=== PATIENT | female | born 1995 | race Caucasian/White ===

== ENCOUNTER 2016-11-21 13:17 | Emergency (ER) | payer OTHER ==
--- NOTE | 2016-11-21 15:02 | UC ---
Back Pain HPI - HPI Summary HPI Summary: WOKE UP THIS MORNING WITH LOW BACK PAIN. HAS BEEN DOING A LOT OF LIFTING AND EXERTING HERSELF SHE IS HELPING THE [employer] MOVE IN. DENIES ANY NUMBNESS/TINGLING OR WEAKNESS. NO SADDLE ANESTHESIA. ASKING FOR A WORK NOTE. HAD SIMILAR PAIN IN MARCH AFTER A FALL BUT THIS SEEMS UNRELATED. - History of Current Complaint Chief Complaint: UCBackPain Stated Complaint: BACK PAIN Time Seen by Provider: 11/21/16 14:52 Hx Obtained From: Patient Hx Last Menstrual Period: 10/18/16 Onset/Duration: Sudden Onset, Lasting Hours, Still Present Timing: Constant Severity Initially: Moderate Severity Currently: Moderate Pain Intensity: 5 Pain Scale Used: 0-10 Numeric Back Pain: Is Discrete @ - LOW BACK Character: Sharp, Aching Aggravating: Movement, Bending Alleviating: Rest Associated Signs And Symptoms: Negative: Swelling, Redness, Bruising, Fever, Weakness, Numbness, Tingling, Abdominal Pain, Flank Pain, Bladder Incontinence, Bowel Incontinence, Pain with Weight Bearing - Allergies/Home Medications Allergies/Adverse Reactions: Allergies Allergy/AdvReac Type Severity Reaction Status Date / Time No Known Allergies Allergy Verified 11/21/16 13:29 PMH/Surg Hx/FS Hx/Imm Hx Respiratory History: Asthma - Surgical History Surgical History: Yes Surgery Procedure, Year, and Place: moles on back removed - Family History Known Family History: Positive: Diabetes Family History: CANCER - Social History Alcohol Use: None Substance Use Type: None Smoking Status (MU): Never Smoked Tobacco Review of Systems Constitutional: Negative Skin: Negative Respiratory: Negative Cardiovascular: Negative Gastrointestinal: Negative Musculoskeletal: Myalgia All Other Systems Reviewed And Are Negative: Yes Physical Exam Triage Information Reviewed: Yes Appearance: Well-Appearing, No Pain Distress, Well-Nourished Vital Signs: Initial Vital Signs Temp 97.9 F 11/21/16 13:25 Pulse 81 11/21/16 13:25 Resp 18 11/21/16 13:25 BP 118/74 11/21/16 13:25 Pulse Ox 100 11/21/16 13:25 Vital Signs Reviewed: Yes Eyes: Positive: Conjunctiva Clear ENT: Positive: Hearing grossly normal Neck: Positive: Supple Respiratory: Positive: No respiratory distress, No accessory muscle use Cardiovascular: Positive: Pulses Normal Abdomen Description: Positive: Soft Musculoskeletal: Positive: ROM Intact, No Edema, Other: - MILDLY TENDER PARASPINOUS MUSCLES LOW BACK Neurological: Positive: Alert Psychological: Positive: Age Appropriate Behavior Skin: Negative: rashes Back Pain Course/Dx - Differential Dx/Diagnosis Provider Diagnoses: ACUTE LOW BACK STRAIN Discharge - Discharge Plan Condition: Stable Disposition: HOME Prescriptions: Cyclobenzaprine TAB* [Flexeril TAB*] 10 mg PO BID PRN #30 tab PRN Reason: Pain Naproxen [Naproxen EC] 500 mg PO BID PRN #30 tab PRN Reason: Pain Patient Education Materials: Low Back Strain (ED) Forms: *Work Release Referrals: Jamee Streeter DO [Primary Care Provider] - If Needed Additional Instructions: BE SURE TO GO THROUGH SLOW RANGE OF MOTION AND STRETCHING EXERCISES DAILY YOU ARE ABLE TO PREVENT STIFFENING UP AND MAKING THE DISCOMFORT WORSE.
[2016-11-21 15:24] VITALS: BP 130/79
== END 2016-11-21 15:23 | disposition home or self-care (01) ==
LOC: UCEAST 13:17
DX: S39.012A Strain of muscle, fascia and tendon of lower back, initial encounter (principal); J45.909 Unspecified asthma, uncomplicated; X50.0XXA Overexertion from strenuous movement or load, initial encounter
CPT/HCPCS: 99212; G0463

== ENCOUNTER 2017-02-17 19:40 | Emergency (ER) | payer OTHER ==
[2017-02-17 20:02] VITALS: BP 117/85
--- NOTE | 2017-02-17 20:25 | UC ---
Back Pain HPI - HPI Summary HPI Summary: Pt presents with lower back pain. She tells me that yesterday she was lifting a heavy box into the back of a truck - did not have an injury or immediate pain. She woke up this morning with lower back pain and stiffness. No numbness or tingling into her legs. No bowel or bladder incontinence. She says that about a year or two ago she had a "lower back injury" while at work, which got better over time. She is currently taking ibuprofen for pain with good relief. She denies dysuria, hematuria, N/V/D/C, headache, fever, or chills. - History of Current Complaint Chief Complaint: UCBackPain Stated Complaint: BACK PAIN Time Seen by Provider: 02/17/17 20:08 Hx Obtained From: Patient Hx Last Menstrual Period: 02/17/2017 Onset/Duration: Sudden Onset Timing: Constant Severity Initially: Moderate Severity Currently: Moderate Pain Intensity: 8 Pain Scale Used: 0-10 Numeric Character: Dull, Throbbing, Stiffness Aggravating Factor(s): Movement, Lifting, Bending, Walking Alleviating Factor(s): Rest, Heat, Cold - Allergies/Home Medications Allergies/Adverse Reactions: Allergies Allergy/AdvReac Type Severity Reaction Status Date / Time No Known Allergies Allergy Verified 02/17/17 19:56 Home Medications: Home Medications Excedrin Extra Strength 250-250-65 mg 250 mg PO BID PRN 02/17/17 [History Confirmed 02/17/17] PMH/Surg Hx/FS Hx/Imm Hx Previously Healthy: Yes - Surgical History Surgical History: Yes Surgery Procedure, Year, and Place: moles on back removed - Family History Known Family History: Positive: None, Unknown, Diabetes Family History: CANCER - Social History Occupation: Employed Full-time Lives: Alone Alcohol Use: None Substance Use Type: None Smoking Status (MU): Current Some Day Smoker Type: Cigars - Immunization History Most Recent Influenza Vaccination: Not UTD Review of Systems Constitutional: Negative Skin: Negative Respiratory: Negative Cardiovascular: Negative Gastrointestinal: Negative Genitourinary: Negative Neurovascular: Negative Musculoskeletal: Decreased ROM - Back, Other: - Lower back pain Neurological: Negative Psychological: Negative All Other Systems Reviewed And Are Negative: Yes Physical Exam Triage Information Reviewed: Yes Appearance: Well-Appearing, Well-Nourished Vital Signs: Initial Vital Signs Temp 99.7 F 11/19/17 19:56 Pulse 97 02/17/17 19:56 Resp 16 02/17/17 19:56 BP 117/85 02/17/17 19:56 Pulse Ox 99 02/17/17 19:56 Vital Signs Reviewed: Yes Neck: Positive: Supple, Nontender, No Lymphadenopathy, Other: - FROM Respiratory: Positive: Chest non-tender, Lungs clear, Normal breath sounds, No respiratory distress, No accessory muscle use Cardiovascular: Positive: RRR, No Murmur, Pulses Normal Abdomen Description: Positive: Nontender, No Organomegaly, Soft. Negative: CVA Tenderness (R), CVA Tenderness (L), Distended, Guarding Bowel Sounds: Positive: Present Musculoskeletal: Positive: Strength Intact - B/L LE including dorsiflexion and plantar flexion., No Edema, ROM Limited @ - Flexion and extension of spine., Other: - Negative SLR. Negative KAY. Normal gait. Neurological: Positive: Alert, Muscle Tone Normal, Other: - CN II-XII grossly intact. Sensations L2-S1 intact. Reflexes: knee and ankle +2. Psychological: Positive: Age Appropriate Behavior Skin: Negative: rashes, significant lesion(s) Back Pain Course/Dx - Course Course Of Treatment: Pt was offered inj of toradol, but declined due to fear of needles. Says she has taken flexeril before, but it made her too "groggy". She wishes to stick with ibuprofen for pain. Needs a note for work today. Advised to use ice alternating with heat and OTC ibuprofen for pain. - Differential Dx/Diagnosis Differential Diagnosis/HQI/PQRI: Fracture, Herniated Disc, Renal Colic, Strain, Sprain Provider Diagnoses: Lower back strain Discharge - Discharge Plan Condition: Stable Disposition: HOME Patient Education Materials: Low Back Strain (ED), Lower Back Exercises (ED) Forms: *Work Release Referrals: Jamee Streeter DO [Primary Care Provider] - Additional Instructions: 1) Ibuprofen OTC for pain. May take up to 800mg every 6 hours as needed for pain. Rest and use ice alternating with heat on your lower back. 2) If you develop increasing pain, numbness or tingling in your legs, or bladder /bowel incontinence - please go to the ED. If you develop a fever, SOB, chest pain, new or worsening symptoms - please call your PCP or go to the ED.
== END 2017-02-17 20:54 | disposition home or self-care (01) ==
LOC: UCEAST 19:40
DX: S33.5XXA Sprain of ligaments of lumbar spine, initial encounter (principal); X50.0XXA Overexertion from strenuous movement or load, initial encounter; Y93.89 Activity, other specified; Y92.9 Unspecified place or not applicable; Y99.9 Unspecified external cause status; Z72.0 Tobacco use
CPT/HCPCS: 99211; G0463

== ENCOUNTER 2018-03-27 10:32 | Emergency (ER) | payer SELFPAY ==
[2018-03-27 10:42] VITALS: BP 111/75
--- NOTE | 2018-03-27 10:59 | UC ---
Abdominal Pain Female HPI - HPI Summary HPI Summary: 22 yo female presents with vomiting and diarrhea that began at 0200 this morning. She tried to eat some toast this morning, but vomited soon after. She is able to drink water without difficulty. Mild generalized abdominal cramping. No new foods or travel recently. Was feeling well yesterday. Denies fever, chills, SOB, chest pain, dysuria, or possible . She did not go to work today and is requesting a work note - History of Current Complaint Chief Complaint: UCAbdominalPain Stated Complaint: VOMITING, AND DIARRHEA Time Seen by Provider: 03/27/18 10:59 Hx Obtained From: Patient Hx Last Menstrual Period: 02/13/18 Onset/Duration: Sudden Onset Severity Initially: Moderate Severity Currently: Moderate Pain Intensity: 5 Pain Scale Used: 0-10 Numeric Allergies/Adverse Reactions: Allergies Allergy/AdvReac Type Severity Reaction Status Date / Time No Known Allergies Allergy Verified 03/27/18 10:43 PMH/Surg Hx/FS Hx/Imm Hx Neurological History: Migraine - Surgical History Surgical History: Yes Surgery Procedure, Year, and Place: moles on back removed - Family History Known Family History: Positive: Diabetes Family History: CANCER - Social History Occupation: Employed Full-time Lives: With Family Alcohol Use: None Substance Use Type: None Smoking Status (MU): Current Some Day Smoker Type: Cigars - Immunization History Most Recent Influenza Vaccination: Not UTD Review of Systems All Other Systems Reviewed And Are Negative: Yes Constitutional: Positive: Negative Skin: Positive: Negative Eyes: Positive: Negative ENT: Positive: Negative Respiratory: Positive: Negative Cardiovascular: Positive: Negative Gastrointestinal: Positive: Vomiting, Diarrhea, Nausea Genitourinary: Positive: Negative Neurovascular: Positive: Negative Neurological: Positive: Negative Psychological: Positive: Negative Physical Exam - Summary Physical Exam Summary: GENERAL: NAD. WDWN. No pain distress. SKIN: No rashes, sores, lesions, or open wounds. NECK: Supple. Nontender. No lymphadenopathy. CHEST: CTAB. No r/r/w. No accessory muscle use. Breathing comfortably and in no distress. CV: RRR. Without m/r/g. Pulses intact. Cap refill <2seconds ABDOMEN: Soft. NTTP. No distention or guarding. No CVA tenderness. Bowel sounds present NEURO: Alert. PSYCH: Age appropriate behavior. Triage Information Reviewed: Yes Vital Signs: Initial Vital Signs Temp 97.8 F 03/27/18 10:40 Pulse 100 03/27/18 10:40 Resp 20 03/27/18 10:40 BP 111/75 03/27/18 10:40 Pulse Ox 98 03/27/18 10:40 Vital Signs Reviewed: Yes Abd Pain Female Course/Dx - Course Course Of Treatment: Suspect viral gastroenteritis. Rx for zofran and work note provided. Advised to drink clear fluids and BRAT diet - advance as tolerated. Go to ED if symptoms worsen. - Differential Dx/Diagnosis Provider Diagnosis: Gastroenteritis Discharge - Sign-Out/Discharge Documenting (check all that apply): Patient Departure All imaging exams completed and their final reports reviewed: No Studies - Discharge Plan Condition: Stable Disposition: HOME Prescriptions: Ondansetron ODT TAB* [Zofran 4 MG Odt TAB*] 4 mg PO Q8H PRN #12 tab.odt PRN Reason: Nausea Patient Education Materials: Gastroenteritis (DC) Forms: *Work Release Referrals: Jamee Streeter DO [Primary Care Provider] - Additional Instructions: If you develop a fever, shortness of breath, chest pain, new or worsening symptoms - please call your PCP or go to the ED. - Billing Disposition and Condition Condition: STABLE Disposition: Home - Attestation Statements Provider Attestation: I was available for consult. This patient was seen by the JEZ. The patient was not presented to, seen by, or examined by me. -Bang
== END 2018-03-27 11:24 | disposition home or self-care (01) ==
LOC: UCEAST 10:32
DX: K52.9 Noninfective gastroenteritis and colitis, unspecified (principal); F17.210 Nicotine dependence, cigarettes, uncomplicated
CPT/HCPCS: 99212; G0463

== ENCOUNTER 2018-12-04 15:38 | Emergency (ER) | payer SELFPAY ==
[2018-12-04 16:06] VITALS: BP 140/92
--- NOTE | 2018-12-04 16:27 | UC ---
Complaint Female HPI - HPI Summary HPI Summary: 23-year-old female presents with 2 day history of dysuria, frequency, and urgency. Denies fever, chills, abdominal pain, back or flank pain, hematuria, vaginal discharge, abnormal vaginal bleeding, or dyspareunia. - History Of Current Complaint Chief Complaint: UCGU Stated Complaint: UTI Time Seen by Provider: 12/04/18 15:55 Hx Obtained From: Patient Hx Last Menstrual Period: OCTOBER 2018 Pain Intensity: 0 - Allergies/Home Medications Allergies/Adverse Reactions: Allergies Allergy/AdvReac Type Severity Reaction Status Date / Time No Known Allergies Allergy Verified 12/04/18 16:03 PMH/Surg Hx/FS Hx/Imm Hx Previously Healthy: Yes - Denies significant PMH - Surgical History Surgical History: Yes Surgery Procedure, Year, and Place: moles on back removed - Family History Known Family History: Positive: None, Unknown, Diabetes Family History: CANCER - Social History Occupation: Employed Full-time Lives: With Family Alcohol Use: None Substance Use Type: None Smoking Status (MU): Former Smoker Type: Cigars - Immunization History Most Recent Influenza Vaccination: Not UTD Review of Systems All Other Systems Reviewed And Are Negative: Yes Constitutional: Negative: Fever, Chills Respiratory: Positive: Negative Cardiovascular: Positive: Negative Gastrointestinal: Negative: Abdominal Pain, Vomiting, Nausea Genitourinary: Positive: Dysuria, Frequency, Urgency. Negative: Hematuria, Vaginal/Penile Burning, Vaginal/Penile Discharge, Ulceration/Lesion, Abnormal Bleeding Musculoskeletal: Positive: Negative Neurological: Positive: Negative Is Patient Immunocompromised?: No Physical Exam - Summary Physical Exam Summary: GENERAL APPEARANCE: Well developed, well nourished, alert and cooperative, and appears to be in no acute distress. CARDIAC: Normal S1 and S2. No S3, S4 or murmurs. Rhythm is regular. There is no peripheral edema, cyanosis or pallor. Extremities are warm and well perfused. Capillary refill is less than 2 seconds. Peripheral pulses intact. LUNGS: Clear to auscultation without rales, rhonchi, wheezing or diminished breath sounds. ABDOMEN: Positive bowel sounds. Soft, nondistended, nontender. No guarding or rebound. No masses or hepatosplenomegally. No CVA tenderness. MUSKULOSKELETAL: ROM intact to all extremities. No joint erythema or tenderness. Normal muscular development. Normal gait. SKIN: Skin normal color, texture and turgor with no lesions or eruptions. Triage Information Reviewed: Yes Vital Signs: Initial Vital Signs Temp 97.9 F 12/04/18 16:04 Pulse 87 12/04/18 16:04 Resp 18 12/04/18 16:04 BP 140/92 12/04/18 16:04 Pulse Ox 100 12/04/18 16:04 Vital Signs Reviewed: Yes Complaint Female Dx - Course Course Of Treatment: 23-year-old female presents with 2 day history of dysuria, frequency, and urgency. Denies fever, chills, abdominal pain, back or flank pain, hematuria, vaginal discharge, abnormal vaginal bleeding, or dyspareunia. Afebrile. Vital signs stable. Patient had an overall unremarkable exam. [id number] urinalysis showed 3+ leukocyte esterase, 1+ blood, positive nitrates, and 1+ protein. Urine culture is pending. Urine was negative. Based on patient's symptoms and UA results will treat empirically for a urinary tract infection with Bactrim DS 1 tablet twice a day 5 days as well as provide her with Pyridium 100 mg 3 times a day 2 days to help with the discomfort. She is to follow-up with her primary care provider or return here in 3 days if symptoms do not improve. Anticipatory guidance and warning symptoms were reviewed with the patient. Verbalizes understanding and agrees plan of care. - Differential Dx/Diagnosis Differential Diagnosis/HQI/PQRI: Pelvic Inflammatory Disease, , Sexually Transmitted Disease, Urinary Tract Infection Provider Diagnosis: UTI (urinary tract infection) Discharge ED - Sign-Out/Discharge Documenting (check all that apply): Patient Departure All imaging exams completed and their final reports reviewed: No Studies - Discharge Plan Condition: Stable Disposition: HOME Prescriptions: Phenazopyridine TAB* [Pyridium 100 mg TAB*] 100 mg PO TID #6 tab Sulfamethox/Trimethoprim DS* [Bactrim DS 800/160 TAB*] 1 tab PO BID #10 tab Patient Education Materials: Urinary Tract Infection in Women (ED) Referrals: Jamee Streeter DO [Primary Care Provider] - 3 Days Additional Instructions: Your urine test in the clinic today is suggestive of a urinary tract infection. We will start you on an antibiotic to treat for the infection. We will also send a urine culture today to see what bacteria grow out and make sure the antibiotic you were prescribed is appropriate to treat the infection. It will take 48-72 hours to get these results. We will contact you if there is any change in your treatment plan. Start Bactrim DS 1 tablet twice a day for 5 days swelling. Take Pyridium 1 tablet every 8 hours for next 2 days to help with the discomfort. This medication will turn your urine an orange color. Drink plenty of fluids. To help prevent urinary tract infections: 1) Be sure to wipe from front to back. 2) Urinate immediately after any sexual intercourse. 3) Avoid taking bubble baths. Follow up with your primary care provider in 3-5 days if symptoms persist. Seek immediate medical attention in the emergency room if you develop fever greater than 100.5 F, have severe abdominal pain, persistent vomiting, or any worsening of symptoms. He - Billing Disposition and Condition Condition: STABLE Disposition: Home
== END 2018-12-04 16:42 | disposition home or self-care (01) ==
LOC: UCEAST 15:38
DX: N39.0 Urinary tract infection, site not specified (principal); Z87.891 Personal history of nicotine dependence
CPT/HCPCS: 81003; 84702; 87077; 87086; 87186; 99212; G0463